=== PATIENT | female | born 1960 | race Hispanic/Latino ===

== ENCOUNTER 2022-08-26 14:07 | Emergency (ER) | payer OTHER ==
[~2022-08-26] VITALS: Ht 152.4 cm; Wt 86.6 kg
[~2022-08-26 14:07] MED LIST: HYDR-3422 PO; MELO-108 PO; METF-444 PO; ONDA4TAB10 PO
[2022-08-26 14:29] LABS: APPEARANCE,URINE CLEAR (CLEAR); BILIRUBIN,URINE NEGATIVE (NEGATIVE); COLOR,URINE YELLOW (YELLOW); GLUCOSE, URINE (UA) 200 mg/dL (NEGATIVE); KETONES,URINE 10 mg/dL (NEGATIVE); LEUKOCYTE ESTERASE ,URINE NEGATIVE Leu/uL (NEGATIVE); NITRATE,URINE NEGATIVE (NEGATIVE); OCCULT BLOOD,URINE MODERATE (NEGATIVE); PH,URINE 6.5 (5.0-8.0); PROTEIN,URINE 20 mg/dL (NEGATIVE); UROBILINOGEN,URINE 0.2 mg/dL (0.2-1.0)
[2022-08-26 14:34] LABS: BASOPHILS % (AUTO) 0.3 % (0.0-5.0); EOSINOPHILS % (AUTO) 0.5 % (0.0-8.0); HEMATOCRIT 39.5 % (36-48); LYMPHOCYTES % (AUTO) 80.7 % (21.0-51.0); MEAN CORPUSCULAR HEMOGLOBIN 29.9 pg (27.0-33.0); MEAN CORPUSCULAR HGB CONC 32.4 g/dL (32.0-36.0); MEAN CORPUSCULAR VOLUME 92.3 fL (79-99); MONOCYTES % (AUTO) 2.7 % (3.0-13.0); NEUTROPHILS % (AUTO) 15.6 % (40.0-77.0); PLATELET COUNT (AUTO) 182 K/uL (130-400); RED BLOOD CELL COUNT(AUTO) 4.28 MIL/uL (4.00-5.50); RED CELL DISTRIBUTION WIDTH 13.2 % (11.0-15.5)
[2022-08-26 14:34] LABS: MUCUS,URINE RARE LPF (None Seen); RBC,URINE 26-50 /HPF (0-1); SQUAMOUS EPITHELIAL CELL,UR RARE /HPF (0-2)
[2022-08-26 14:36] LABS: WHITE BLOOD COUNT (AUTO) 36.5 K/uL (4.8-10.8)
[2022-08-26 14:44] LABS: CREATININE 0.6 mg/dL (0.5-1.5); POTASSIUM 3.7 mmol/L (3.5-5.1)
[2022-08-26 14:54] LABS: ALBUMIN 3.6 g/dL (3.5-5.0)
[2022-08-26 15:08] LABS: EOSINOPHILS % (MANUAL) 1 % (1-6); LYMPHOCYTES % (MANUAL) 44 % (22-44); MAN.DIFF COMMENT-IMPRESSION MANUAL DIFFERENTIAL; MONOCYTES % (MANUAL) 4 % (2-9); REACTIVE LYMPHOCYTES 34 % (0-0); SEGMENTED NEUTROPHILS % 17 % (40-70)
[2022-08-26] MEDS ORDERED: PANTOPRAZOLE 40 MG/VIAL IVP STA (17:11)
[2022-08-26] MEDS ORDERED: PANTOPRAZOLE 40 MG/VIAL ONE (17:12)
[2022-08-26] MEDS ORDERED: 0.9%NACL 1000ML 1,000 ML IV ONE (17:30)
[2022-08-26] MEDS ORDERED: KETOROLAC 15MG/ML VIAL (15MG/ML) ONE (18:03)
[2022-08-26] MEDS ORDERED: PANT40TA55 PO (18:05)
[2022-08-26 18:20] VITALS: BP 121/65
== END 2022-08-26 18:15 | disposition home or self-care (01) ==
LOC: EDH 14:07
DX: K29.70 Gastritis, unspecified, without bleeding (principal); C91.10 Chronic lymphocytic leukemia of B-cell type not having achieved remission; E11.9 Type 2 diabetes mellitus without complications; E78.00 Pure hypercholesterolemia, unspecified; K21.9 Gastro-esophageal reflux disease without esophagitis; M19.90 Unspecified osteoarthritis, unspecified site; Z79.1 Long term (current) use of non-steroidal anti-inflammatories (NSAID); Z79.84 Long term (current) use of oral hypoglycemic drugs; Z90.49 Acquired absence of other specified parts of digestive tract
CPT/HCPCS: 99284; 96374; 96361; 96375; 84484; 80053; 83690; 85025; 83605; 81001; 36415; 93005; J7030; C9113; J1885